=== PATIENT | female | born 1980 | race Two or more races ===

== ENCOUNTER 2017-01-23 21:03 | Observation (INO) | payer MEDICAID ==
[~2017-01-23 21:03] MED LIST: PRENCAP87 PO
[2017-01-23 23:16] LABS: Urine Bilirubin Negative (Negative); Urine Blood Negative /uL (Negative); Urine Ca Oxalate Crystal MOD (None Seen); Urine Color Yellow (Yellow); Urine Glucose Normal (Normal); Urine Ketone TRACE (Negative); Urine Mucus FEW (None Seen); Urine Nitrite Negative (Negative); Urine RBC 1 /hpf (0 - 4); Urine Squamous Epithelial Cell MANY /hpf (<5)
== END 2017-01-23 23:02 | disposition home or self-care (01) | DRG 566 ==
LOC: LDRP 21:03
PROVIDERS: ADMIT Specialist; ATTEND Specialist
DX: O99.212 Obesity complicating pregnancy, second trimester (principal); O26.892 Other specified pregnancy related conditions, second trimester; R10.30 Lower abdominal pain, unspecified; Z3A.26 26 weeks gestation of pregnancy
CPT/HCPCS: 59025; 81001; 81002; G0378

== ENCOUNTER → 2022-12-05 | Outpatient (CLI) | payer MEDICAID ==
[~2022-12-05] VITALS: Ht 162.6 cm; Wt 89.8 kg
== END | disposition home or self-care (01) ==
LOC: Rad HDHVI 07:59
PROVIDERS: ATTEND Internal Medicine Cardiovascular Disease
DX: R00.1 Bradycardia, unspecified (principal)
CPT/HCPCS: 78452; 93017; 96374; A9500